=== PATIENT | male | born 1970 | race African-American/Black ===

== ENCOUNTER 2017-01-10 09:49 | Emergency (ER) | payer MEDICAID ==
[~2017-01-10] VITALS: Ht 175.3 cm; Wt 70.3 kg
--- NOTE | 2017-01-10 09:55 | NUR ---
called in [facility]- pt is in the restroom
--- NOTE | 2017-01-10 10:03 | NUR ---
[facility]
--- NOTE | 2017-01-10 10:13 | NUR ---
[facility]
[2017-01-10 10:46] VITALS: BP 136/100
== END 2017-01-10 10:47 | disposition home or self-care (01) ==
LOC: ER 09:51
DX: Z48.02 Encounter for removal of sutures (principal); F31.9 Bipolar disorder, unspecified; F98.8 Other specified behavioral and emotional disorders with onset usually occurring in childhood and adolescence; F17.200 Nicotine dependence, unspecified, uncomplicated; F10.20 Alcohol dependence, uncomplicated
CPT/HCPCS: 99281; A4606; Z7610; Z7502

== ENCOUNTER 2019-03-15 20:45 | Emergency (ER) | payer MEDICAID ==
[~2019-03-15] VITALS: Ht 175.3 cm; Wt 63.5 kg
[2019-03-15] MEDS ORDERED: KETOROLAC TROMETHAMINE INJ 30 MG/ML VIAL ONE (21:25)
[2019-03-15] MEDS ORDERED: LORAZEPAM INJ 2 MG/ML VIAL ONE (21:25)
[2019-03-15] MEDS: LORAZEPAM INJ 2 MG/ML VIAL IM ONE (21:35)
[2019-03-15] MEDS: KETOROLAC TROMETHAMINE INJ 60 MG/2 ML VIAL IM ONE (21:35)
--- NOTE | 2019-03-15 22:03 | NUR ---
PT PRESENTED TO THE ER WITH A C/O RT KNEE PAIN. PT REC'D MEDICATION ORDERED AND WARM BLANKETS. PT APPEARS TO BE COMFORTABLY RESTING. WILL CONTINUE TO MONITOR THE PT.
--- NOTE | 2019-03-16 00:10 | NUR ---
PT APPEARS TO BE COMFORTABLY RESTING. WILL CONTINUE TO MONITOR THE PT.
--- NOTE | 2019-03-16 02:34 | NUR ---
Patient is resting comfortably in bed with eyes closed. Easily aroused. VSS
[2019-03-16 04:46] VITALS: BP 145/76
--- NOTE | 2019-03-16 04:47 | NUR ---
Patient given written and verbal discharge instructions. Patient verbalizes understanding of instructions. Patient is ambulatory with steady gait. Refuses offer of [facility] placement. Patient given list of available shelters in surrounding area.
== END 2019-03-16 04:48 | disposition home or self-care (01) ==
LOC: ER 20:46
DX: M17.11 Unilateral primary osteoarthritis, right knee (principal); F15.10 Other stimulant abuse, uncomplicated; I10 Essential (primary) hypertension; R00.0 Tachycardia, unspecified; R45.1 Restlessness and agitation; F31.9 Bipolar disorder, unspecified; F10.10 Alcohol abuse, uncomplicated; F17.200 Nicotine dependence, unspecified, uncomplicated; Y90.9 Presence of alcohol in blood, level not specified; Z59.0 Homelessness; Z86.19 Personal history of other infectious and parasitic diseases

== ENCOUNTER 2021-03-14 08:26 | Emergency (ER) | payer MEDICAID, OTHER ==
[~2021-03-14] VITALS: Ht 175.3 cm; Wt 62.6 kg
[2021-03-14 08:45] VITALS: BP 146/92
--- NOTE | 2021-03-14 09:14 | NUR ---
PT SEEN AND EXAMINED BY .
[2021-03-14] MEDS ORDERED: ACET-73 PO (09:16)
[2021-03-14] MEDS ORDERED: IBUP-1957 PO (09:16)
[2021-03-14] MEDS ORDERED: GABA-532 PO (09:16)
[2021-03-14] MEDS ORDERED: KETOROLAC TROMETHAMINE INJ 30 MG/ML VIAL ONE (09:21)
--- NOTE | 2021-03-14 09:24 | NUR ---
Patient given written and verbal discharge instructions. Patient verbalizes understanding of instructions. Patient is ambulatory with steady gait. Refuses offer of jail placement. Patient given list of available shelters in surrounding area.
[2021-03-14] MEDS ORDERED: KETOROLAC TROMETHAMINE INJ 60 MG/2 ML VIAL IM ONE (09:30)
== END 2021-03-14 09:26 | disposition home or self-care (01) ==
LOC: ER 08:33
DX: M25.561 Pain in right knee (principal); G89.29 Other chronic pain; F17.200 Nicotine dependence, unspecified, uncomplicated; Z59.0 Homelessness; Z79.899 Other long term (current) drug therapy
CPT/HCPCS: 96372; 99283; J1885